=== PATIENT | female | born 1950 | race Caucasian/White ===

== ENCOUNTER → 2024-05-22 | Outpatient (BNVA) | payer MEDICARE, SELFPAY | END | disposition home or self-care (01) | PROVIDERS: PCP Specialist; Referring Provider Specialist; Visit Provider Urology | DX: N28.1 Cyst of kidney, acquired (principal); I12.9 Hypertensive chronic kidney disease with stage 1 through stage 4 chronic kidney disease, or unspecified chronic kidney disease; N18.30 Chronic kidney disease, stage 3 unspecified; K58.9 Irritable bowel syndrome, unspecified | CPT/HCPCS: 81003; 99212; G0463 ==

== ENCOUNTER → 2024-06-14 | Outpatient (CLI) | payer MEDICARE, SELFPAY ==
--- NOTE | 2024-06-14 09:30 | XR_ITS ---
Examination: CT abdomen and pelvis without contrast. Coronal 3-D reconstructions. Sagittal 2-D reconstructions. Date and time of exam:June 14, 2024 0954 hours Comparison May 20, 2021 INDICATIONS: History flank pain kidney stones months, history 7.4 cm left renal cyst CTDI: vol (mGy): 8.85 DLP: (mGycm): 428 Technique: Axial images of the abdomen have been obtained, 3 mm slice thickness Intravenous contrast material has not been administered. Low dose protocols were performed. One or more of the following dose reduction techniques were used; automated exposure control, adjustment of the mA and/or KV according to patient size, use of iterative reconstruction technique. Findings: No focal liver or splenic lesion No gallstones No pancreatic or adrenal mass 8.5 cm upper pole left renal cyst No hydronephrosis renal or ureteral calculi Abdominal aortic calcification no aneurysmal dilatation Normal appendix No bowel obstruction Contracted urinary bladder Moderate osteopenia grade 1 anterolisthesis L4 on L5 Again noted is sclerosis involving the L4 vertebral body IMPRESSION: 8.5 cm upper pole left renal cyst
== END | disposition home or self-care (01) ==
LOC: CCTX 09:21
PROVIDERS: PCP Specialist; Referring Provider Urology; Visit Provider Urology
DX: N20.0 Calculus of kidney (principal)
CPT/HCPCS: 74176

== ENCOUNTER → 2024-10-27 | Outpatient (BNVA) | payer MEDICARE, SELFPAY | END | disposition home or self-care (01) | PROVIDERS: PCP Specialist; Referring Provider Specialist; Visit Provider Urology | DX: N28.1 Cyst of kidney, acquired (principal); G89.4 Chronic pain syndrome; R10.2 Pelvic and perineal pain; I12.9 Hypertensive chronic kidney disease with stage 1 through stage 4 chronic kidney disease, or unspecified chronic kidney disease; N18.2 Chronic kidney disease, stage 2 (mild); E78.00 Pure hypercholesterolemia, unspecified | CPT/HCPCS: 81003; 99212; G0463 ==

== ENCOUNTER → 2024-12-29 | Outpatient (BNVA) | payer MEDICARE, SELFPAY | END | disposition home or self-care (01) | PROVIDERS: PCP Specialist; Referring Provider Specialist; Visit Provider Urology | DX: N35.92 Unspecified urethral stricture, female (principal); N32.89 Other specified disorders of bladder; I12.9 Hypertensive chronic kidney disease with stage 1 through stage 4 chronic kidney disease, or unspecified chronic kidney disease; N18.2 Chronic kidney disease, stage 2 (mild); E78.00 Pure hypercholesterolemia, unspecified | CPT/HCPCS: 52281; 96372; A4217; A4649; C1894; J1580; A9270 ==

== ENCOUNTER → 2025-02-06 | Outpatient (CLI) | payer MEDICARE, SELFPAY ==
--- NOTE | 2025-02-06 15:26 | XR_ITS ---
Examination: Lumbar spine, 5 views Technique: Lumbar spine AP, lateral, coned lateral lower lumbar spine, bilateral obliques 5 views Exam date and time: February 06, 2025 1553 hours INDICATIONS: Low back pain months FINDINGS: Significant osteopenia Moderate diffuse facet arthropathy No lumbar acute fracture Grade 1 anterolisthesis L4 on L5 Diffuse moderate lumbar degenerative disc disease Prominent lumbar spondylosis No cortical bone destruction Intact pedicles IMPRESSION: Diffuse moderate lumbar degenerative disc disease Prominent lumbar spondylosis
== END | disposition home or self-care (01) ==
LOC: CDIM 14:48
PROVIDERS: PCP Specialist; Referring Provider Specialist; Visit Provider Specialist
DX: M51.360 Other intervertebral disc degeneration, lumbar region with discogenic back pain only (principal); M47.816 Spondylosis without myelopathy or radiculopathy, lumbar region
CPT/HCPCS: 72110